=== PATIENT | female | born 1990 | race Caucasian/White ===

== ENCOUNTER 2019-05-09 19:44 | Emergency (ER) | payer BC ==
[2019-05-09 20:05] VITALS: BP 106/67
--- NOTE | 2019-05-09 20:07 | UC ---
Lower Extremity/Ankle HPI - HPI Summary HPI Summary: 29-year-old female who was playing rugby when she rolled her left ankle, fell and then other people fell on it. She arrives with the ankle wrapped and an ice bag on it. She has no other injury. - History of Current Complaint Chief Complaint: UCLowerExtremity Stated Complaint: ANKLE INJURY Time Seen by Provider: 05/09/19 19:45 Hx Obtained From: Patient Hx Last Menstrual Period: unsure- has had mirena x 2 years ?: No Onset/Duration: Sudden Onset Severity Initially: Mild Severity Currently: Mild Pain Intensity: 3 Aggravating Factor(s): Ambulation Alleviating Factor(s): Rest, Ice Able to Bear Weight: No - Allergies/Home Medications Allergies/Adverse Reactions: Allergies Allergy/AdvReac Type Severity Reaction Status Date / Time latex Allergy Unknown Verified 05/09/19 20:01 Reaction Details Home Medications: Home Medications Ibuprofen 400 mg PO Q8HR PRN 05/09/19 [History Confirmed 05/09/19] Levonorgestrel (Iud) [Mirena IUD] 20 mcg IU DAILY 05/09/19 [History Confirmed ] PMH/Surg Hx/FS Hx/Imm Hx Previously Healthy: Yes - Surgical History Surgical History: None - Family History Known Family History: Positive: Non-Contributory - Social History Alcohol Use: Occasionally Substance Use Type: None Smoking Status (MU): Never Smoked Tobacco Review of Systems All Other Systems Reviewed And Are Negative: Yes Skin: Positive: Bruising - Mild bruising and swelling to both sides of the left ankle. Motor: Positive: Decreased ROM Musculoskeletal: Positive: Decreased ROM, Other: - Achilles is intact, good peripheral pulses neuro sensation and capillary refill. Swelling both sides at the ankle which gives the appearance of deformity. Good knee stability. Neurological: Positive: Negative Is Patient Immunocompromised?: No Physical Exam Triage Information Reviewed: Yes Appearance: Well-Appearing, No Pain Distress, Well-Nourished Vital Signs: Initial Vital Signs Temp 100.8 F 05/09/19 20:03 Pulse 110 05/09/19 20:03 Resp 18 05/09/19 20:03 BP 106/67 05/09/19 20:03 Pulse Ox 100 05/09/19 20:03 Vital Signs Reviewed: Yes Musculoskeletal: Positive: ROM Limited @ - Achilles is intact, good peripheral pulses neuro sensation and capillary refill. Swelling both sides at the ankle which gives the appearance of deformity. Good knee stability. I did not put the foot or ankle through range of motion because of the patient's pain level. Neurological: Positive: Alert, Muscle Tone Normal Psychological Exam: Normal Skin: Positive: Other - Swelling to lateral and medial ankle as well as minor bruising. Lower Extremity Course/Dx - Course Course Of Treatment: Left ankle x-ray: Fracture distal right tibia. A 3 inch Jb was applied and a cam boot. Patient was given crutches and was taught how to crutch walk. She was given oxycodone with Tylenol 1 dose here and 1 for at home. She is to call the orthopedist in the morning to make an appointment to be seen tomorrow or the next day. She is to elevate as much as possible and ice intermittently over the next 24-48 hours. She is to be nonweightbearing. No work until cleared by the orthopedist. - Differential Dx/Diagnosis Provider Diagnosis: Fracture of left ankle Discharge ED - Sign-Out/Discharge Documenting (check all that apply): Patient Departure All imaging exams completed and their final reports reviewed: No - Discharge Plan Condition: Fair Disposition: HOME Prescriptions: oxyCODONE/Acetamin 5/325 MG* [Percocet 5/325 TAB*] 1 tab PO Q4H PRN #10 tab MDD 8 PRN Reason: Pain - Moderate Patient Education Materials: Ankle Fracture (DC) Forms: *Work Release Referrals: No Primary Care Phys,NOPCP [Primary Care Provider] - Jose Angel Carranza MD [Medical Doctor] - Additional Instructions: Ice intermittently and elevate as much as possible, nonweightbearing. Definite follow-up with the orthopedist by phone in the morning and make an appointment to be seen. May take regular Tylenol every 4 hours for mild pain and the Percocet for severe pain. The Percocet contains acetaminophen so do not take it within 4 hours of the regular Tylenol. Keep the boot on and no work until cleared by the orthopedist. - Billing Disposition and Condition Condition: FAIR Disposition: Home
[2019-05-09] MEDS ORDERED: oxyCODONE/Acetamin 5/325 MG* TAB PO ONE (20:34)
[2019-05-09] MEDS ORDERED: HYDROcodone/ACETAMIN 5-325 MG* 1 TAB PO ONE ×2 (20:41→20:43)
--- NOTE | 2019-05-10 07:24 | UC ---
- Progress Note Progress Note: /reviewed report of ankle xray: Dr. Evans's read is oblique comminuted displaced intracrticular fracture of the medial malleolus, in agreement with Cindy Yanez's read. Course/Dx - Diagnoses Provider Diagnoses: Fracture of left ankle Discharge ED - Sign-Out/Discharge Documenting (check all that apply): Patient Departure All imaging exams completed and their final reports reviewed: Yes - Discharge Plan Condition: Fair Disposition: HOME Prescriptions: oxyCODONE/Acetamin 5/325 MG* [Percocet 5/325 TAB*] 1 tab PO Q4H PRN #10 tab MDD 8 PRN Reason: Pain - Moderate Patient Education Materials: Ankle Fracture (DC) Forms: *Work Release Referrals: No Primary Care Phys,NOPCP [Primary Care Provider] - Jose Angel Carranza MD [Medical Doctor] - Additional Instructions: Ice intermittently and elevate as much as possible, nonweightbearing. Definite follow-up with the orthopedist by phone in the morning and make an appointment to be seen. May take regular Tylenol every 4 hours for mild pain and the Percocet for severe pain. The Percocet contains acetaminophen so do not take it within 4 hours of the regular Tylenol. Keep the boot on and no work until cleared by the orthopedist. - Billing Disposition and Condition Condition: FAIR Disposition: Home
== END 2019-05-09 21:20 | disposition home or self-care (01) ==
LOC: UCEAST 19:44
DX: S82.52XA Displaced fracture of medial malleolus of left tibia, initial encounter for closed fracture (principal); Z91.040 Latex allergy status; W19.XXXA Unspecified fall, initial encounter; Y93.63 Activity, rugby; Y92.9 Unspecified place or not applicable
CPT/HCPCS: 99203; A9270-GY; G0463

== ENCOUNTER → 2019-05-16 07:51 | Day surgery (SDC) | payer BC ==
[~2019-05-16 07:51] MED LIST: Acetaminophen TAB* 325 MG ONE; Acetaminophen TAB* 325 MG PO ONE; Acetaminophen TAB* 325 MG PO PRN; Buffered Lidocaine 1% SYRIN* 1 ML/SYRINGE INTRADERM ONE; Bupivacaine 0.5%* 50 ML MDV VIAL ONE; Dexamethasone IV* 4 MG/ML 1 ML (4 MG) ONE; DiMENhydriNATE IV* 50 MG/ML VIAL IV PUSH PRN; Famotidine IV* 10 MG/ML 2 ML (20 mg) ONE; Gabapentin CAP(*) 300 MG ONE; Gabapentin CAP(*) 300 MG PO ONE; HYDROcodone/ACETAMIN 5-325 MG* 1 TAB PO PRN; HYDROmorphone INJ1* 1 MG/ML SYRINGE IV PRN; Ketorolac INJ* 30 MG/ML 1 ML VIAL ONE; Lactated Ringers 1000 ML Bag* 1,000 ML IV SCH; Lidocaine 2% PF * 5 ML VIAL ONE; Midazolam* 1 MG/ML 2 ML VIAL (2 MG) ONE; Naloxone* 0.4 MG/ML 1 ML VIAL IV PRN; Ondansetron INJ* 2 MG/ML VIAL IV PRN; Ondansetron INJ* 2 MG/ML VIAL ONE; Propofol* 10 MG/ML 20 ML BTL ONE; ROPIVACAINE 5 MG/ML 30 ML BTL (0.5%) ONE; Ropivacaine (OR use only) 2 MG/ML 10 ML ONE; Scopolamine 1.5 mg* PATCH TRANSDERM PRN; Scopolamine PATCH Remove* 1 NOTE MISC PATCH OFF ONE; ceFAZolin 2 GM PREMIX in ORs 2 GM/50 ML BAG ONE; diPHENhydraMINE IV* 50 MG/ML 1 ml VIAL (BENADRYL) IV PRN; fentaNYL* 50 MCG/ML 2 ML VIAL (100 MCG VIAL) IV PRN; fentaNYL* 50 MCG/ML 2 ML VIAL (100 MCG VIAL) ONE
--- NOTE | 2019-05-16 14:21 | OP ---
Operative Report - Blank - Operative Report Date of Operation: 05/16/19 Note: PATIENT: Rebekah Ramon DATE OF : 1990 DATE OF SURGERY: 05/16/2019 SURGEON: Endy Lacey MD CHARGE HISTOTECHNOLOGIST: AWLT Zee, whos assistance was necessary for positioning, retraction, help with instrumentation, and closure. ANESTHESIOLOGIST: Dr. Mars PREOPERATIVE DIAGNOSIS: Left ankle Maisonneuve Injury with medial malleolus fracture, anterolateral tibia fracture, proximal fibula fracture, and distal tib -fib syndesmotic disruption POSTOPERATIVE DIAGNOSIS: Left ankle Maisonneuve Injury with medial malleolus fracture, anterolateral tibia fracture, proximal fibula fracture, and distal tib -fib syndesmotic disruption OPERATION: 1. Left ankle open reduction and internal fixation of medial malleolus 2. Left ankle open reduction and internal fixation of the anterolateral tibial plafond fracture 3. Left ankle open reduction and internal fixation of the distal tib-fib syndesmosis 4. Closed treatment of left proximal fibula fracture. ANESTHESIA: General + block IMPLANTS: Arthrex cannulated and solid screws TOURNIQUET TIME: Less than 2 hours with a well-padded thigh tourniquet at 250mmHg SPECIMENS: none ESTIMATED BLOOD LOSS: minimal COMPLICATIONS: none STATUS: Stable from the operating room to the recovery room and then home. INDICATIONS FOR PROCEDURE: Ms. Ramon sustained the above closed ankle injury. Both operative and non operative treatment alternatives were reviewed. Further, the nature and risks of surgery were reviewed in careful detail, in the office as well as the pre- operative holding area. Our discussions regarding the risks of surgery included , but were not limited to, infection, wound problems, nerve injury, neuroma, RSD , persistent symptoms, blood clot, nonunion, malunion, post-traumatic arthritis , hardware failure, failure of the surgery, and even the remote chance of catastrophic complication, including loss of limb. DESCRIPTION OF PROCEDURE: The patient was seen in the preoperative holding unit and informed written consent was obtained. The appropriate extremity was marked. The patient was then brought to the operating room and carefully positioned on the operating room table. Anesthesia was induced. All bony prominences were padded with great care. A well-padded thigh tourniquet was placed. A chlorhexidine based pre- scrub was performed followed by a chloraprep prep and drape in standard sterile fashion. A surgical safety pause was then conducted in which we confirmed the appropriate patient, extremity, planned procedure, availability of equipment, indication and administration of prophylactic antibiotics, and DVT prophylaxis in the form of a compression boot on the non-surgical extremity. I began with Esmarch exsanguination of the limb and inflated the tourniquet. I made an approximately 4cm incision over the medial malleolus. The fracture was exposed and hematoma was removed. There was a loose osteocartilaginous loose body at the lateral ankle joint, which was excised. Reduction of the medial malleolar fracture was obtained with a pointed reduction clamp. I placed guidewires for 4.0 mm cannulated screws. I confirmed the position of the guidewires fluoroscopically. I then overdrilled the wires and placed two partially threaded 4.0 mm cannulated screws. I then made a laterally based incision at the ankle. I dissected anteriorly to the anterolateral tibial plafond fracture. The fracture was cleaned and hematoma was removed. I then reduced the fracture fragment and placed a 3.0 mm cortical screw to hold this fixated. I then placed a pointed reduction clamp on the distal fibula and pulled traction. I manually reduced the distal tib-fib syndesmosis and placed a large pointed reduction clamp to hold this while I placed two tricortical 3.5 mm cortical syndesmotic screws. Fluoroscopic images were obtained demonstrating a good reduction of both the fractures and the syndesmosis. The proximal fibula fracture was then imaged and was out to length, so I made the decision to treat this in a closed manner. At this point, we irrigated copiously and then closed in layers meticulously utilizing 3-0 Monocryl for the deep and subdermal layers and 3-0 nylon for the skin. A sterile dressing was then applied followed by a splint with the ankle in a neutral position. The patient was then awakened from anesthesia and transferred to the recovery room in stable condition. There were no complications. All needle and sponge counts were correct at the end of the case. ATTESTATION: I attest I was present and scrubbed and performed the critical portions of the procedure myself.
[2019-05-16 16:56] VITALS: BP 97/62
== END | disposition home or self-care (01) ==
LOC: OR 07:51
PROVIDERS: ATTEND Orthopaedic Surgery
DX: S82.862A Displaced Maisonneuve's fracture of left leg, initial encounter for closed fracture (principal); S82.832A Other fracture of upper and lower end of left fibula, initial encounter for closed fracture; W03.XXXA Other fall on same level due to collision with another person, initial encounter; Y93.63 Activity, rugby; Y92.328 Other athletic field as the place of occurrence of the external cause; G89.18 Other acute postprocedural pain
CPT/HCPCS: 76000; 81025; A9270-GY; C1713; J0690; J1100; J1885; J2250; J2405; J2704; J2795; J3010; J3490